=== PATIENT | male | born 1955 | race Caucasian/White ===

== ENCOUNTER → 2023-10-18 13:57 | Outpatient (REF) | payer OTHER, SELFPAY | LOC: RCS 13:57 | PROVIDERS: ATTENDING PHYSICIAN Family Medicine | DX: R06.02 Shortness of breath (principal) | CPT/HCPCS: 93306 ==

== ENCOUNTER → 2023-10-22 09:40 | Outpatient (REF) | payer OTHER, SELFPAY | LOC: RCS 09:40 | PROVIDERS: ATTENDING PHYSICIAN Internal Medicine Cardiovascular Disease; FAMILY PHYSICIAN Family Medicine | DX: R00.2 Palpitations (principal); R06.02 Shortness of breath | CPT/HCPCS: 93017; 93350 ==

== ENCOUNTER 2024-03-24 15:06 | Emergency (ER) | payer OTHER, SELFPAY ==
[2024-03-24 15:12] VITALS: BP 134/84
[2024-03-24 15:29] LABS: % Basophils 0.6 % (0-2); % Eosinophils 3.6 % (0-6); % Immature Granulocytes 0.3 % (0-0.5); % Lymphocytes 28.6 % (20.5-51.1); % Monocytes 11.7 % (1.7-9.3); % Neutrophils 55.2 % (42.2-75.2); Absolute Eosinophils 0.2 10^3/uL (0-0.7); Absolute Lymphocytes 1.8 10^3/uL (1.2-3.4); Absolute Monocytes 0.7 10^3/uL (0.1-0.6); Absolute Neutrophils 3.4 10^3/uL (1.4-6.5); Hematocrit 43.5 % (39.0-52.0); Mean Corp Hgb Conc. 34.5 g/dL (33.0-37.0); Mean Corpuscular Hgb 32.8 pg (27.0-31.0); Mean Platelet Volume 8.9 fL (7.4-10.4); Nucleated Red Blood Cells % 0 % (-); Platelet Count 285 10^3/uL (130-400); Red Blood Cell Count 4.58 10^6/uL (4.70-6.10); White Blood Cell Count 6.2 10^3/uL (4.8-10.8)
[2024-03-24 15:45] LABS: ALT (SGPT) 27 U/L (0-50); AST (SGOT) 28 U/L (17-59); Albumin 4.3 g/dl (3.5-5.0); Alkaline Phosphatase 68 U/L (38-126); Blood Urea Nitrogen 21 mg/dl (9-20); Carbon Dioxide 27 mmol/L (22-30); Chloride 104 mmol/L (98-107); Glucose 106 mg/dl (70-99); Potassium 4.1 mmol/L (3.5-5.1); Sodium 138 mmol/L (135-145); Total Bilirubin 0.6 mg/dl (0.2-1.3); Total Protein 7.2 g/dl (6.3-8.2); eGFR > 60.00
[2024-03-24 16:00] VITALS: BP 130/80
--- NOTE | 2024-03-24 16:50 | ED.GENMED ---
History of Present Illness
General
Chief Complaint: Abdominal Symptoms
Source: patient
Time Seen by Provider: 03/24/24 16:01
History of Present Illness
History of Present Illness:
68-year-old male with past medical history of babesiosis and Lyme's presenting to the emergency department for evaluation of some GI symptoms that are been ongoing for about 2 months noting symptoms started as loose stool, saw primary care provider
who did stool studies which were ultimately negative and had an outpatient CT scan of his abdomen pelvis done at [facility] which was negative for any intra-abdominal pathologies. Patient states over time he has had continued symptoms
but over the last 1 to 2 weeks has had more pronounced myalgias and fatigue which she states is reminiscent of his previous Lyme's infection. Patient notes that about a week or so prior to all of the symptoms starting he was bitten by a tick. He
notes that there are no rashes, fevers, abdominal pain, nausea, vomiting, urinary symptoms or any other concerns. Patient states he decided to come to the ER today to get tested for Lyme's.
Past History
Past History
ED Past Medical History: Other (Restless leg syndrome, chronic low back pain, narcotic dependent, M�ni�re's disease) and Other (Postconcussion syndrome)
ED Past Surgical History: Urological
Social History
Tobacco: Non-smoker
Alcohol: Occasional
Drug: None
Personal:
Living: with family
Employment: Employed (Self-employed)
Family History
Family History: Other (Noncontributory)
Review of Systems
Review of Systems
All Other Systems: ROS reviewed and negative except as documented in HPI and ROS
Phy Exam
Physical Exam
Physical Exam:
GENERAL: Alert , in no apparent distress
EYE: conjunctiva clear
NECK: Supple
ENT: o/p clr, mmm.
CARDIAC: Regular rate and rhythm
LUNGS: Clear breath sounds bilaterally, no acute respiratory distress, no wheezes/rales/rhonchi
NEUROLOGICAL: Alert and oriented
SKIN: Warm and dry, skin intact. No rash
MUSCULOSKELETAL: well perfused.
PSYCH: Normal and appropriate interaction.
Scores
Heart Failure Risk
Heart Failure Risk Score: Not Applicable
Heart Score for Chest Pain Patients
STEMI patient?: Not applicable
Withdrawal Assessment of Alcohol
Withdrawal Assessment Completed?: Not applicable
Course
Orders/Labs/Results
Orders:
Orders
03/24/24 15:21
Complete Blood Count/With Diff Urgent
Comprehensive Metabolic Panel Urgent
Lyme Progressive Urgent
Abnormal Lab Results
03/24/24
15:21
RBC 4.58 L 10^6/uL
(4.70-6.10)
MCV 95.0 H fL
(80.0-94.0)
MCH 32.8 H pg
(27.0-31.0)
Absolute Monos (auto) 0.7 H 10^3/uL
(0.1-0.6)
Monocytes % 11.7 H %
(1.7-9.3)
BUN 21 H mg/dl
(9-20)
Glucose 106 H mg/dl
(70-99)
03/24/24 15:21
03/24/24 15:21
Vital Signs
Initial and Last Documented VS:
Initial Vital Signs
Temp Pulse Resp BP Pulse Ox
98.0 F 72 16 134/84 98
03/24/24 15:12 03/24/24 15:12 03/24/24 15:12 03/24/24 15:12 03/24/24 15:12
Last Documented Vital Signs
Temp Pulse Resp BP Pulse Ox
97.8 F 84 18 130/80 97
03/24/24 16:00 03/24/24 16:00 03/24/24 16:00 03/24/24 16:00 03/24/24 16:00
MDM/Problems Addressed
Differential Diagnosis Includes:
Viral syndrome, I do not have concern for C. difficile or other stool infection given negative stool culture done, patient also states his primary care was concerned for possible diverticulitis which was ruled out with previous CT scan, Lyme disease
or other tickborne illness
MDM/Problems Addressed:
68-year-old male presenting to the emergency department for evaluation and for testing for Lyme's disease. Patient has a history of this in the past. He notes that all of his symptoms today feel very similar to when he was treated for Lyme's
before. I discussed with patient his labs that were drawn in triage are unremarkable. Also noted to him that patient's Lyme test would not be resolved for at least 4 or 5 days. We discussed the possibility of initiating empiric treatment and side
effects that may come with this/the doxycycline that would be prescribed including GI upset. Patient would prefer to initiate empiric treatment. He has an appointment scheduled with his primary care provider for next week but I did advise he
contact them to see if they could expedite outpatient follow-up. Patient aware of return precautions to the ER.
*Pulse Oximetry
Patient hypoxic: no
*Critical Care Note
Total Time (30-74mins, 75-104mins- exclusive of procedures): Not Applicable
Data Reviewed
Review of Other/Old Records Reveals: Labs and Records
Source: patient and records
ED Attending Note
-
Portions of this chart may have been created with voice recognition software.� Occasional wrong word or��sound alike� substitutions may have occurred due to the inherent limitations of voice recognition software.
Discharge Plan
Departure
Patient Disposition: Home (Routine Discharge)
Date of Disposition: 03/24/24
Time of Disposition: 16:50
Patient with high blood pressure during this ER visit?: No
Discharge Problem:
Myalgia
Instructions: Lyme Disease Test
Prescriptions:
New
doxycycline hyclate 100 mg capsule
100 mg PO BID 14 Days Qty: 28 0RF
No Action
doxycycline hyclate 100 MG capsule
100 mg PO Q12 Qty: 14 0RF
Referrals:
NONE,* [Family Provider] -
Interventions
Interventions:
*Risk Screen - Suicide Last Done: 03/24/24 16:45
*General Assessment Last Done: 03/24/24 16:45
*Neglect/Abuse Screening Last Done: 03/24/24 16:45
ED- Fall Risk Assessment Last Done: 03/24/24 16:30
*ED COVID-19 Vaccine History Last Done: 03/24/24 17:05
*Nursing Disposition Last Done: 03/24/24 17:05
OD-Dpwkph-Xiqtehahxs Assessment Last Done: 03/24/24 16:30
Discharge Date and Time
Discharge Date/Time: 03/24/24 17:05
Print Language: SETSWANA
[2024-03-26 15:22] LABS: Lyme Antibody Screen, EIA Negative (Negative)
== END 2024-03-24 17:05 | disposition home or self-care (01) ==
LOC: EMR 15:06
PROVIDERS: Student in an Organized Health Care Education/Training Program; EMERGENCY PHYSICIAN Emergency Medicine
DX: M79.10 Myalgia, unspecified site (principal)
CPT/HCPCS: 99283; 80053; 85025; 86618

== ENCOUNTER → 2024-09-02 09:54 | Outpatient (REF) | payer OTHER, SELFPAY | LOC: RAD 09:54 | PROVIDERS: ATTENDING PHYSICIAN Surgery Vascular Surgery; FAMILY PHYSICIAN Family Medicine | DX: I71.40 Abdominal aortic aneurysm, without rupture, unspecified (principal) | CPT/HCPCS: 76770 ==

== ENCOUNTER 2025-01-10 17:32 | Emergency (ER) | payer OTHER, SELFPAY ==
[2025-01-10 17:35] VITALS: BP 133/82
[2025-01-10 18:18] VITALS: BMI 27.1
--- NOTE | 2025-01-10 18:42 | ED.GENMED ---
History of Present Illness
General
Chief Complaint: Back Pain
Source: patient
Exam Limitations: none
Time Seen by Provider: 01/10/25 18:30
Nursing documentation reviewed up to this point in time: agreed with
History of Present Illness
History of Present Illness:
Patient states he lost his footing and fell. Hit is back against a tree trunk. Fall occurred approx 3 weeks ago. States pain is not improving. Brought self to ED for eval.
Past History
Past History
ED Past Medical History: Asthma, Other (Restless leg syndrome, chronic low back pain, narcotic dependent, M�ni�re's disease) and Other (Postconcussion syndrome)
ED Past Surgical History: Urological
Social History
Tobacco: Non-smoker
Alcohol: Occasional
Drug: None
Personal:
Living: with family
Employment: Employed (Self-employed)
Family History
Family History: Other (Noncontributory)
Review of Systems
Review of Systems
Allergies reviewed?: Yes
All Other Systems: ROS reviewed and negative except as documented in HPI and ROS
Constitutional: Reports no symptoms
EENT: Reports no symptoms
Respiratory: Reports no symptoms
Cardiac: Reports no symptoms
ABD/GI: Reports no symptoms
: Reports no symptoms
Musculoskeletal: Reports joint pain (pain to middle, low back, right posterior ribs)
Skin: Reports no symptoms
Hematologic/Lymphatic: Reports no symptoms
Phy Exam
General Physical Exam
General Presentation: well appearing and mild distress
General age: appears stated age
General Skin: warm and dry
General Habitus: normal
General Mental: alert
Pulmonary Exam
Pulmonary Exam: lungs clear and no respiratory distress
Neurological Exam
Neurological Exam: alert, oriented x3, no motor deficits, no sensory deficits and speech normal
Musculoskeletal Exam
Musculoskeletal Exam: neuro vasc intact
Skin Exam
Skin Exam: normal color, warm/dry and no rash
Psychiatric Exam
Psychiatric Exam: normal mood/affect
Course
Orders/Labs/Results
Orders:
Orders
01/10/25 18:41
Lumbar Spine Complete, 4 View [CR Lumbar Spine Comp Min 4 Vw*] Urgent
Comment:
Reason For Exam: fall
Ribs, Right 3 View W/PA Chest [CR Ribs-right 3 Vw W/pa Chest*] Urgent
Comment:
Reason For Exam: fall
Thoracic Spine 3 Views CR [CR Thoracic Spine 3 Views] Urgent
Comment:
Reason For Exam: fall
01/10/25 20:00
Hydrocodone 5/APAP 325 [[place] 5/325] 1 tablet PO NOW STA
Vital Signs
Initial and Last Documented VS:
Initial Vital Signs
Temp Pulse Resp BP Pulse Ox
98.4 F 94 16 133/82 95
01/10/25 17:35 01/10/25 17:35 01/10/25 17:35 01/10/25 17:35 01/10/25 17:35
Last Documented Vital Signs
Temp Pulse Resp BP Pulse Ox
98.4 F 88 18 133/65 99
01/10/25 17:35 01/10/25 20:00 01/10/25 20:00 01/10/25 20:00 01/10/25 20:00
*Critical Care Note
Total Time (30-74mins, 75-104mins- exclusive of procedures): Not Applicable
ED Attending Note
-
Portions of this chart may have been created with voice recognition software.� Occasional wrong word or��sound alike� substitutions may have occurred due to the inherent limitations of voice recognition software.
Discharge Plan
Departure
Patient Disposition: Home (Routine Discharge)
Date of Disposition: 01/10/25
Time of Disposition: 20:01
Patient with high blood pressure during this ER visit?: No
Condition: Good
Covid-19: Not Applicable
Discharge Problem:
Contusion of back
Instructions: Contusion, Ibuprofen
Prescriptions:
New
lidocaine 4 % adhesive patch,medicated
1 patch topical DAILY PRN (Reason: Pain) Qty: 15 1RF
No Action
doxycycline hyclate 100 MG capsule
100 mg PO Q12 Qty: 14 0RF
doxycycline hyclate 100 mg capsule
100 mg PO BID 14 Days Qty: 28 0RF
Referrals:
Radha Seals, [Family Provider] - Follow up in 2-3 days
Interventions
Interventions:
*General Assessment Last Done: 01/10/25 18:18
*Neglect/Abuse Screening Last Done: 01/10/25 18:18
*ED- Fall Risk Assessment Last Done: 01/10/25 18:18
*ED COVID-19 Vaccine History Last Done: 01/10/25 18:18
ED-Musculoskeletal Assessment Last Done: 01/10/25 20:06
Discharge Date and Time
Print Language: TAMAZIGHT
Musculoskeletal Injury Exam
Musculoskeletal Injury Exam
Right Posterior Ribs:
Pain with Movement?: Moderate
Tender to palpation?: Moderate
Soft tissue swelling?: None
External deformity and angulation?: None
Joint effusion?: None
Contusion?: Moderate
Hematoma-local bleeding into tissue?: None
Strain- Sprain- Tear (Connective tissue injury)?: Moderate
Crepitus with movement?: No
Joint instability?: No
Malalignment/deformity?: No
Range of motion: Limited
Distal skin color and temperature: normal-warm & good color
Capillary Refill: normal
Normal distal neurovascular exam?: Yes
Right Middle Back:
Pain with Movement?: Moderate
Tender to palpation?: Moderate
Soft tissue swelling?: None
External deformity and angulation?: None
Joint effusion?: None
Contusion?: Moderate
Hematoma-local bleeding into tissue?: None
Strain- Sprain- Tear (Connective tissue injury)?: Moderate
Crepitus with movement?: No
Joint instability?: No
Malalignment/deformity?: No
Range of motion: Limited
Distal skin color and temperature: normal-warm & good color
Capillary Refill: normal
Normal distal neurovascular exam?: Yes
Right Lower Back:
Pain with Movement?: Moderate
Tender to palpation?: Moderate
Soft tissue swelling?: None
External deformity and angulation?: None
Joint effusion?: None
Contusion?: Moderate
Hematoma-local bleeding into tissue?: None
Strain- Sprain- Tear (Connective tissue injury)?: None
Crepitus with movement?: No
Joint instability?: No
Malalignment/deformity?: No
Range of motion: Limited
Distal skin color and temperature: normal-warm & good color
Capillary Refill: normal
Normal distal neurovascular exam?: Yes
[2025-01-10 19:00] VITALS: BP 134/88
[2025-01-10 20:00] VITALS: BP 133/65
[2025-01-10] MEDS: NORCO 5/325 1 TABLET PO (20:10)
== END 2025-01-10 20:13 | disposition home or self-care (01) ==
LOC: EMR 17:32
PROVIDERS: EMERGENCY PHYSICIAN Emergency Medicine; FAMILY PHYSICIAN Family Medicine
DX: S20.229A Contusion of unspecified back wall of thorax, initial encounter (principal); W19.XXXA Unspecified fall, initial encounter; J45.909 Unspecified asthma, uncomplicated; G25.81 Restless legs syndrome
CPT/HCPCS: 99283; 71101; 72072; 72110